=== PATIENT | female | born 1985 | race Caucasian/White ===

== ENCOUNTER 2019-05-29 16:02 | Emergency (ER) | payer OTHER ==
--- NOTE | 2019-05-29 17:19 | UC ---
Respiratory Complaint HPI - HPI Summary HPI Summary: 33 yo female presents with - History of Current Complaint Stated Complaint: COUGH/FEVER Time Seen by Provider: 05/29/19 17:19 Hx Obtained From: Patient Physical Exam - Summary Physical Exam Summary: GENERAL: NAD. WDWN. No pain distress. SKIN: No rashes, sores, lesions, or open wounds. HEENT: Head: AT/NC Eyes: EOM intact. Conjunctiva clear without inflammation or discharge. Ears: Hearing grossly normal. TMs intact, no bulging, erythema, or edema. Nose: Nasal mucosa pink and moist. NTTP maxillary and frontal sinus. Throat: Posterior oropharynx without exudates, erythema, or tonsillar enlargement. Uvula midline. NECK: Supple. Nontender. No lymphadenopathy. CHEST: CTAB. No r/r/w. No accessory muscle use. Breathing comfortably and in no distress. CV: RRR. Pulses intact. Cap refill <2seconds NEURO: Alert. PSYCH: Age appropriate behavior. Triage Information Reviewed: Yes Vital Signs Reviewed: Yes Discharge ED - Sign-Out/Discharge Documenting (check all that apply): Patient Departure All imaging exams completed and their final reports reviewed: No Studies - Discharge Plan Condition: Stable Disposition: HOME Patient Education Materials: Viral Syndrome (ED) Referrals: Otilia Jenkins MD [Primary Care Provider] - Additional Instructions: [facility] will contact pt tomorrow and notify of results when they are available. Advised to be on home isolation until cleared by health department. Go to ED for increased SOB or any difficulty breathing - new or worsening symptoms. - Billing Disposition and Condition Condition: STABLE Disposition: Home
[2019-05-29 18:04] LABS: Influenza A Molecular Negative (Negative); Influenza B Molecular Negative (Negative)
--- NOTE | 2019-05-29 18:07 | UC ---
Respiratory Complaint HPI - HPI Summary HPI Summary: fevers chills recently been in [place], [place], Lenore is not ill but had an expose to some one who is + recently - History of Current Complaint Chief Complaint: UCRespiratory Stated Complaint: COUGH/FEVER Time Seen by Provider: 05/29/19 17:19 Hx Obtained From: Patient ?: No Onset/Duration: Sudden Onset, Lasting Days Timing: Constant Severity Initially: Moderate Severity Currently: Moderate Character: Cough: Nonproductive Aggravating Factors: Nothing Alleviating Factors: Nothing Associated Signs And Symptoms: Positive: Fever, Chills - Allergies/Home Medications Allergies/Adverse Reactions: Allergies Allergy/AdvReac Type Severity Reaction Status Date / Time coconut Allergy Unknown Verified 05/29/19 17:57 Reaction Details feathers Allergy Unknown Verified 05/29/19 17:57 Reaction Details walnut Allergy Unknown Verified 05/29/19 17:57 Reaction Details Home Medications: Home Medications NK [No Home Medications Reported] 05/29/19 [History Confirmed 05/29/19] PMH/Surg Hx/FS Hx/Imm Hx Previously Healthy: Yes - Family History Known Family History: Positive: None - Social History Occupation: Student Lives: With Family Alcohol Use: None Substance Use Type: None Smoking Status (MU): Never Smoked Tobacco Review of Systems All Other Systems Reviewed And Are Negative: Yes Constitutional: Positive: Fever, Chills, Fatigue Skin: Positive: Negative Eyes: Positive: Negative ENT: Positive: Negative Respiratory: Positive: Cough Cardiovascular: Positive: Negative Gastrointestinal: Positive: Negative Genitourinary: Positive: Negative Motor: Positive: Negative Neurovascular: Positive: Negative Musculoskeletal: Positive: Arthralgia, Myalgia Neurological/Mental Status: Positive: Headache Psychological: Positive: Negative Is Patient Immunocompromised?: No Physical Exam Triage Information Reviewed: Yes Appearance: Well-Nourished, Ill-Appearing, Pain Distress - mild Vital Signs Reviewed: Yes Eye Exam: Normal Eyes: Positive: Conjunctiva Clear ENT Exam: Normal ENT: Positive: Normal ENT inspection, Hearing grossly normal, Pharynx normal, TMs normal, Uvula midline. Negative: Nasal congestion, Tonsillar swelling, Tonsillar exudate, Trismus, Muffled voice, Hoarse voice, Dental tenderness, Sinus tenderness Dental Exam: Normal Neck exam: Normal Neck: Positive: Supple, Nontender Respiratory Exam: Normal Respiratory: Positive: Chest non-tender, Lungs clear, Normal breath sounds, No respiratory distress, No accessory muscle use Cardiovascular Exam: Normal Cardiovascular: Positive: RRR, No Murmur, Pulses Normal, Brisk Capillary Refill Musculoskeletal Exam: Normal Musculoskeletal: Positive: Strength Intact, ROM Intact, No Edema Neurological Exam: Normal Neurological: Positive: Alert, Muscle Tone Normal Psychological Exam: Normal Skin Exam: Normal Diagnostics - Laboratory Lab Results: influenza a/b -, strep - Respiratory Course/Dx - Course Course Of Treatment: self isolate in a separate room from partner clean with Clorox solution after each person uses the br or kitchen facilities--follow with pcp prn---health department will follow with her - Differential Dx/Diagnosis Provider Diagnosis: Acute viral syndrome Discharge ED - Sign-Out/Discharge Documenting (check all that apply): Patient Departure All imaging exams completed and their final reports reviewed: No Studies - Discharge Plan Condition: Stable Disposition: HOME Patient Education Materials: Viral Syndrome (ED) Referrals: Otilia Jenkins MD [Primary Care Provider] - Additional Instructions: [facility] will contact pt tomorrow and notify of results when they are available. Advised to be on home isolation until cleared by health department. Go to ED for increased SOB or any difficulty breathing - new or worsening symptoms. - Billing Disposition and Condition Condition: STABLE Disposition: Home
[2019-05-29] MEDS ORDERED: Acetaminophen TAB* 325 MG PO ONE (18:10)
[2019-05-29 19:16] VITALS: BP 116/49
== END 2019-05-29 19:30 | disposition home or self-care (01) ==
LOC: UCEAST 16:02
DX: B34.9 Viral infection, unspecified (principal); Z20.828 Contact with and (suspected) exposure to other viral communicable diseases; Z88.9 Allergy status to unspecified drugs, medicaments and biological substances; Z91.018 Allergy to other foods
CPT/HCPCS: 87651; 99211; A9270-GY; G0463